=== PATIENT | female | born 1950 | race Caucasian/White ===

== ENCOUNTER → 2016-11-29 | Outpatient (CLI) | payer MEDICARE, OTHER ==
[2016-11-29 08:04] LABS: Cholesterol 199 mg/dL (<200); HDL Cholesterol 63 mg/dL (40-60); Triglycerides 89 mg/dL (<150)
== END | disposition home or self-care (01) ==
LOC: LABWHC1 06:53
PROVIDERS: ATTEND Internal Medicine Clinical Cardiac Electrophysiology
DX: E78.5 Hyperlipidemia, unspecified (principal)
CPT/HCPCS: 36415; 80061

== ENCOUNTER → 2017-05-13 | Outpatient (CLI) | payer MEDICARE, OTHER ==
[2017-05-13 08:01] LABS: Basophils % (A) 0 %; CH 29.5; CHCM 34.2; Eosinophils # (A) 0.1 k/uL (0-0.7); Eosinophils % (A) 2 %; HCT 44.3 % (34.0-46.0); HDW 2.61; HGB 14.8 gm/dL (11.4-16.0); Luc # (Auto) 0.09; Luc % (Auto) 2; Lymphocytes # (A) 1.9 k/uL (1.0-4.8); Lymphocytes % (A) 35 %; MCHC 33.5 g/dL (31.0-37.0); MCV 86.5 fL (80.0-100.0); Monocytes # (A) 0.3 k/uL (0-1.0); Monocytes % (A) 4 %; Neutrophils # (A) 3.1 k/uL (1.3-7.7); Neutrophils % (A) 57 %; RBC 5.12 m/uL (3.80-5.40); RDW 13.5 % (11.5-15.5); WBC 5.5 k/uL (3.8-10.6)
[2017-05-13 09:56] LABS: ALT 39 U/L (9-52); AST 26 U/L (14-36); Alkaline Phosphatase 92 U/L (38-126); Anion Gap 10 mmol/L; Blood Urea Nitrogen 13 mg/dL (7-17); Calcium 9.5 mg/dL (8.4-10.2); Carbon Dioxide 27 mmol/L (22-30); Chloride 106 mmol/L (98-107); Cholesterol 191 mg/dL (<200); Glucose 98 mg/dL (74-99); HDL Cholesterol 54 mg/dL (40-60); Magnesium 2.2 mg/dL (1.6-2.3); Non-African American GFR(MDRD) >60 (>60 ml/min/1.73 sqM); Potassium 4.5 mmol/L (3.5-5.1); Sodium 143 mmol/L (137-145); Total Bilirubin 0.5 mg/dL (0.2-1.3); Total Protein 6.7 g/dL (6.3-8.2); Triglycerides 205 mg/dL (<150)
[2017-05-13 10:42] LABS: Vitamin B12 878 pg/mL (239-931)
== END | disposition home or self-care (01) ==
LOC: LABWHC1 06:43
PROVIDERS: ATTEND Family Medicine
DX: G43.109 Migraine with aura, not intractable, without status migrainosus (principal); I10 Essential (primary) hypertension; E78.5 Hyperlipidemia, unspecified; E06.3 Autoimmune thyroiditis
CPT/HCPCS: 36415; 80053; 80061; 82607; 83735; 84439; 84443; 85025

== ENCOUNTER → 2017-10-11 | Outpatient (CLI) | payer MEDICARE, OTHER ==
--- NOTE | 2017-10-14 08:44 | MM ---
Reason for exam: screening (asymptomatic). Last mammogram was performed 1 year and 1 month ago. History: Patient is postmenopausal. Family history of breast cancer in sister and breast cancer in sister at age 50. Excisional biopsy of the left breast, 2008. Excisional biopsy of the left breast, 2003. Physical Findings: A clinical breast exam by your physician is recommended on an annual basis and results should be correlated with mammographic findings. MG 3D Screening Mammo W/Cad Bilateral CC and MLO view(s) were taken. Prior study comparison: August 27, 2016, bilateral MG 3d screening mammo w/cad. August 23, 2015, bilateral MG screening mammo w CAD. There are scattered fibroglandular densities. Finding: There are slowly increasing typically benign calcifications in the right breast consistent with hyalinizing fibroadenoma. There is a chronic nodularity bilaterally. No significant changes in finding since August 27, 2016 and August 23, 2015. ASSESSMENT: Benign, BI-RAD 2 RECOMMENDATION: Routine screening mammogram of both breasts in 1 year.
== END | disposition home or self-care (01) ==
LOC: RADMAMWWP 09:58
PROVIDERS: ATTEND Family Medicine
DX: Z12.31 Encounter for screening mammogram for malignant neoplasm of breast (principal)
CPT/HCPCS: 77063; G0202

== ENCOUNTER → 2019-09-25 | Outpatient (CLI) | payer MEDICARE, OTHER ==
--- NOTE | 2019-09-27 17:31 | XR ---
EXAMINATION TYPE: XR foot complete RT DATE OF EXAM: 09/25/2019 COMPARISON: NONE HISTORY: 68-year-old female right foot injury 3 weeks ago, attention second toe TECHNIQUE: 3 views FINDINGS: No displaced fracture seen. There may be very subtle callus and slight cortical step-off along the la teral margin of the second proximal phalangeal shaft. Excessive osseous overlap on the lateral view l imits assessment of the second toe on this view. This seems to be some mild soft tissue swelling of t he second toe. IMPRESSION: Possible subtle healing callus relating to an occult, nondisplaced second proximal phalangeal shaft f racture. Correlate as to if pain localizes to this level.
== END | disposition home or self-care (01) ==
LOC: RADXRMAIN 14:44
PROVIDERS: ATTEND Family Medicine
DX: S99.912A Unspecified injury of left ankle, initial encounter (principal)

== ENCOUNTER 2019-09-30 08:49 | Day surgery (SDC) | payer MEDICARE, OTHER ==
[2019-09-25 15:51] VITALS: BMI 28.5
--- NOTE | 2019-09-29 20:23 | P.GSHP ---
History of Present Illness H&P Date: 09/25/19 Chief Complaint: Interstitial cystitis Patient is a 68-year-old female a history of urinary frequency and suprapubic discomfort which dates back several years. She had been given trials of oxybutynin and Myrbetriq with no improvement. She underwent cystoscopy under anesthesia in 12/2017. Glomerulations suggestive of interstitial cystitis were noted as well as what appeared to be two Hunners ulcers on the dome of the bladder. Biopsies showed increased mast cells consistent with interstitial cystitis. During the procedure the bladder was distended and following the procedure the patient had improvement in her urinary frequency which lasted for over one year. She was seen by me in 08/2019 due to difficulty voiding which responded to a single catheterization. She continues to have urinary frequency and now wishes to undergo repeat cystoscopy with hydrodistention due to the improvement experienced in 2017. She is currently voiding nearly every hour during the day and 2-3 times at night. - Constitutional Constitutional: Denies fever - Cardiovascular Cardiovascular: Denies chest pain, Denies palpitations, Denies shortness of breath, Denies syncope - Respiratory Respiratory: Denies cough, Denies wheezing - Gastrointestinal Gastrointestinal: Denies abdominal pain - Genitourinary (Female) Genitourinary: Reports as per HPI Past Medical History Past Medical History: Asthma, Hypertension Additional Past Medical History / Comment(s): Stew's thyroiditis hypercholesterolemia, osteopenia Past Surgical History: Breast Surgery (Left breast biopsy-2003), Hysterectomy (Total abdominal hysterectomy with bilateral salpingo-oophorectomy) Additional Past Surgical History / Comment(s): Cystoscopy with bladder biopsies 12/2017, cystocele repair, total thyroidectomy colonoscopy, treatment of pleural effusion Smoking Status: Never smoker - Past Family History Father Family Medical History: Cancer Sister(s) Family Medical History: Cancer Additional Family Medical History / Comment(s): SISTER #1-BREAST. SISTER#2-SKIN Medications and Allergies Home Medications Medication Instructions Recorded Confirmed Type Atorvastatin [Lipitor] 40 mg PO HS 09/25/19 09/25/19 History Cetirizine HCl [Zyrtec] 10 mg PO HS 09/25/19 09/25/19 History Levothyroxine Sodium [Synthroid] 100 mcg PO DAILY 09/25/19 09/25/19 History Lisinopril [Zestril] 10 mg PO HS 09/25/19 09/25/19 History Allergies Allergy/AdvReac Type Severity Reaction Status Date / Time No Known Allergies Allergy Verified 09/25/19 15:44 Surgical - Exam - General well developed, well nourished, no distress - ENT no hearing loss - Neck no masses, no lymphadectomy - Respiratory normal respiratory effort - Cardiovascular Rhythm: regular - Abdomen Abdomen: soft, no organomegaly, no masses Assessment and Plan (1) Interstitial cystitis (chronic) with hematuria Narrative/Plan: The patient will undergo cystoscopy under general anesthesia with hydrodistention of the bladder. She is aware of the operative risks which include anesthesia, bleeding, infection and persistence of her urinary symptoms. Status: Acute Code(s): N30.11 - INTERSTITIAL CYSTITIS (CHRONIC) WITH HEMATURIA SNOMED Code(s): 826201137
[~2019-09-30 08:49] MED LIST: DEXAMETHASONE SOD PHOSPHATE 10 MG/ML 1 ML VIAL IV ONE; HYDROmorphone 0.5 MG/0.5 ML SYRINGE IVP PRN; LACTATED RINGERS 1,000 ML IV SCH; LIDOCAINE 1% 20 ML VIAL (10MG/ML) FOR IV START INTRADERMA PRN; ONDANSETRON 4 MG/2 ML VIAL IVP ONE
[2019-09-30 09:23] VITALS: TEMP 98.8
[2019-09-30] MEDS ORDERED: fentaNYL (PF) 50 MCG/ML 2 ML AMP ONE (09:41)
[2019-09-30] MEDS ORDERED: PROPOFOL 10 MG/ML 20 ML VIAL IV ONE (09:41)
[2019-09-30] MEDS ORDERED: MIDAZOLAM 2 MG/2 ML VIAL ONE (09:41)
[2019-09-30 10:23] VITALS: RESP 18
[2019-09-30 10:48] VITALS: BP 121/78; PULSE 64
--- NOTE | 2019-09-30 20:30 | P.OP ---
Date of Procedure: 09/30/19 Preoperative Diagnosis: Interstitial cystitis Postoperative Diagnosis: Interstitial cystitis Procedure(s) Performed: Cystoscopy with hydrodistention of bladder Surgeon: Kenneth Mejia Estimated Blood Loss (ml): 0 Pathology: none sent Condition: stable Disposition: PACU Indications for Procedure: The patient is a 68-year-old female with chronic urinary frequency and suprapubic pain. She underwent cystoscopy with bladder biopsies one year ago and seemed to improve following bladder hydrodistention. Biopsies at that time showed eosinophils consistent with interstitial cystitis. The patient's symptoms have returned. Repeat hydrodistention of the bladder is planned. Description of Procedure: The patient was taken to the operating suite where adequate intravenous sedation was given. She was placed in the dorsal lithotomy position with her legs suspended from padded Ancelmo stirrups. The perineum was prepped with Betadine solution and draped in a sterile fashion. The 19 Spanish cystoscope sheath with 30 lens was passed through the urethra and into the bladder. Both ureteral orifices were normal location and configuration and effluxed clear urine. There appeared to be two somewhat scarred areas on the dome of the bladder consistent with Hunners ulcers. There was no evidence of tumor or diverticulum present. The bladder was then distended with water to 80 cm of water pressure. The bladder was drained after 1 minute. The hydrodistention was repeated 2 add itional times. Following the hydrodistentions there appeared to be glomerulations present in the urothelium, especially on the posterior bladder wall and dome. The bladder was drained and the cystoscope was withdrawn. Patient tolerated procedure well and left the operative room awake and in satisfactory condition. Blood loss was negligible. The patient will be seen back in follow-up in approximately 1 month.
== END 2019-09-30 11:44 | disposition home or self-care (01) ==
LOC: OR 08:49
PROVIDERS: ATTEND Urology
DX: N30.11 Interstitial cystitis (chronic) with hematuria (principal); I10 Essential (primary) hypertension; E78.5 Hyperlipidemia, unspecified; J45.909 Unspecified asthma, uncomplicated; E06.3 Autoimmune thyroiditis; M85.80 Other specified disorders of bone density and structure, unspecified site; E89.0 Postprocedural hypothyroidism; E78.00 Pure hypercholesterolemia, unspecified; Z79.890 Hormone replacement therapy; Z79.899 Other long term (current) drug therapy; Z90.710 Acquired absence of both cervix and uterus; Z90.722 Acquired absence of ovaries, bilateral; Z90.79 Acquired absence of other genital organ(s); Z98.890 Other specified postprocedural states; Z80.3 Family history of malignant neoplasm of breast; Z80.8 Family history of malignant neoplasm of other organs or systems
CPT/HCPCS: 52260; J2250; J1100; J0690; J2405; J3010; J2704

== ENCOUNTER → 2019-10-26 | Outpatient (CLI) | payer MEDICARE, OTHER ==
--- NOTE | 2019-10-26 08:43 | MM ---
Reason for exam: screening (asymptomatic). Last mammogram was performed 1 year ago. History: Patient is postmenopausal. Family history of breast cancer in sister and breast cancer in sister at age 50. Excisional biopsy of the left breast, 2008. Excisional biopsy of the left breast, 2003. Physical Findings: A clinical breast exam by your physician is recommended on an annual basis and results should be correlated with mammographic findings. MG 3D Screening Mammo W/Cad Bilateral CC and MLO view(s) were taken. Prior study comparison: October 23, 2018, bilateral MG 3d screening mammo w/cad. October 11, 2017, bilateral MG 3d screening mammo w/cad. The breast tissue is heterogeneously dense. This may lower the sensitivity of mammography. There is chronic nodularity in the right breast. There is no discrete abnormality. ASSESSMENT: Benign, BI-RAD 2 RECOMMENDATION: Routine screening mammogram of both breasts in 1 year.
--- NOTE | 2019-10-26 09:48 | BD ---
EXAMINATION TYPE: Axial Bone Density DATE OF EXAM: 10/26/2019 COMPARISON: DEXA bone scan August 27, 2016 CLINICAL HISTORY: Postmenopausal female Height: 64 Weight: 165.7 FRAX RISK QUESTIONS: Alcohol (3 or more units per day): no Family History (Parent hip fracture): no Glucocorticoids (More than 3mos): no (Ex: prednisone, prednisolone, methylprednisolone, dexamethasone, and hydrocortisone). History of Fracture in Adulthood: yes Secondary Osteoporosis: 1. Type 1 Diabetes: no 2. Hyperthyroidism: no 3. Menopause before 45: yes 4. Malnutrition: no 5. Chronic liver disease: no Rheumatoid Arthritis: no Current Tobacco Use: no RISK FACTORS HISTORY OF: Family History of Osteoporosis: no Active: yes Diet low in dairy products/other sources of calcium: yes Postmenopausal woman: total hysterectomy age 41 Lost more than 2 inches in height since high school: no Frequent falls: yes MEDICATIONS: Lipitor, lisinopril, allergy meds, vitamins Thyroid Medications: levothyroxine How Long: Additional History: EXAM MEASUREMENTS: Bone mineral densitometry was performed using the [employer] [place] [employer] [facility]. Bone mineral density as measured about the Lumbar spine is: ----- L1-L4(G/cm2): 1.082 T Score Values are as follows: ----- L2: -0.8 ----- L3: -1.3 ----- L4: -0.5 ----- L1-L4: -0.8 Bone mineral density has: increased 0.9 % since study of: 08.27.2016 Bone mineral density about the R hip (g/cm2): 0.853 Bone mineral density about the L hip (g/cm2): 0.839 T Score values are as follows: -----R Neck: -1.3 -----L Neck: -1.0 -----R Total: -1.4 -----L Total: -0.9 Bone mineral density has: decreased -3.9 % since study of: 08.27.2016 IMPRESSION: Osteopenia (T Score between -2.5 and -1) remains present in both hips. There remains slightly increased risk of fracture and the patient may be considered for treatment. Re-Screen 2-5 years. NOTE: T-SCORE=SD OF THE YOUNG ADULT MEAN.
== END | disposition home or self-care (01) ==
LOC: RADMAMWWP 06:59
PROVIDERS: ATTEND Obstetrics & Gynecology
DX: Z12.31 Encounter for screening mammogram for malignant neoplasm of breast (principal); M85.852 Other specified disorders of bone density and structure, left thigh; M85.851 Other specified disorders of bone density and structure, right thigh
CPT/HCPCS: 77063; 77067; 77080

== ENCOUNTER → 2022-06-29 | Outpatient (CLI) | payer MEDICARE, OTHER ==
--- NOTE | 2022-06-29 11:39 | BD ---
EXAMINATION TYPE: Axial Bone Density DATE OF EXAM: 06/29/2022 COMPARISON: Prior DEXA bone scan 2019 CLINICAL HISTORY: 71 years year old Female. ICD-10 CODE: M85.88 disorder of bone Height: 5'3 1/2 Weight: 161 FRAX RISK QUESTIONS: History of Fracture in Adulthood: Y Secondary Osteoporosis: 3. Menopause before 45: y RISK FACTORS HISTORY OF: Postmenopausal woman: y MEDICATIONS: Prednisone or other steroids: y How Lon week Thyroid Medications: Which medication: Levothyroxine How Lon Additional Medications: blood pressure,cholesterol,singulair Additional History: EXAM MEASUREMENTS: Bone mineral densitometry was performed using the [employer] System. Bone mineral density as measured about the Lumbar spine is: ----- L1-L4(G/cm2): 1.069 T Score Values are as follows: ----- L1: -1.3 ----- L2: -1.7 ----- L3: -1.5 ----- L4: 0.5 ----- L1-L4: -0.9 Bone mineral density has: 0.8 % since study of: 08/27/2016 Bone mineral density about the R hip (g/cm2): 0.828 Bone mineral density about the L hip (g/cm2): 0.814 T Score values are as follows: -----R Neck: -1.5 -----L Neck: -1.6 -----R Total: -1.0 -----L Total: -1.2 Bone mineral density has: -6.0 % since study of: 08/27/2016 FRAX%s: The graph provided illustrates a 16.2% chance for a major osteoporotic fx and a 2.5% chance f or the hips probability for fx in 10 years time. Bone density decreased from most recent study 2019. IMPRESSION: Osteopenia (T Score between -2.5 and -1) remains present. There is slightly increased risk of fracture and the patient may be considered for treatment. Re-Screen 2-5 years. NOTE: T-SCORE=SD OF THE YOUNG ADULT MEAN.
--- NOTE | 2022-07-02 08:38 | MM ---
Reason for Exam: Screening (asymptomatic). Last mammogram was performed 2 year(s) and 8 month(s) ago. Patient History: Menarche at age 14. First Full-Term at age 26. Left ovary removed at age 41. Right ovary removed at age 41. Hysterectomy at age 41. Postmenopausal. 2008, Excisional Biopsy on the Left side. 2003, Excisional Biopsy on the Left side. Sister had breast cancer, age 50. Sister had breast cancer. Risk Values: Salma 5 year model risk: 8.8%. NCI Lifetime model risk: 23.6%. Prior Study Comparison: 10/11/2017 Bilateral Screening Mammogram, [facility]. 10/23/2018 Bilateral Screening Mammogram, [facility]. 10/26/2019 Bilateral Screening Mammogram, [facility]. Tissue Density: The breast tissue is heterogeneously dense. This may lower the sensitivity of mammography. Findings: Analyzed By CAD. Pattern appears symmetrical and stable. There are grouped coarse calcifications within the upper outer right breast present previously chronic nodularities in the upper outer right breast. No significant interval changes. No suspicious groups of microcalcifications, spiculated or lobular masses, architectural distortion or other secondary signs of malignancy are mammographically apparent. Overall Assessment: Benign, BI-RAD 2 Management: Screening Mammogram of both breasts in 1 year. A negative mammogram report should not preclude additional follow up of suspicious palpable abnormalities. Patient should continue monthly self breast exam. A clinical breast exam by your physician is recommended on an annual basis and results should be correlated with mammographic findings. Electronically signed and approved by: Eliot Don D.O. Radiologis
== END | disposition home or self-care (01) ==
LOC: RADMAMWWP 06:48
PROVIDERS: ATTEND Family Medicine
DX: Z12.31 Encounter for screening mammogram for malignant neoplasm of breast (principal); M85.89 Other specified disorders of bone density and structure, multiple sites
CPT/HCPCS: 77063; 77067; 77080